=== PATIENT | male | born 1965 | race Two or more races ===

== ENCOUNTER 2016-08-16 17:07 | Emergency (ER) | payer MEDICARE, MEDICAID ==
[~2016-08-16] VITALS: Ht 1 cm; Wt 1.0 kg
[~2016-08-16 17:07] MED LIST: ASPI81CH43 PO; Atorvastatin Calcium PO; CALCIUM CHLOR(10%) 100MG/ML 10ML SYRINGE IV ONE; CARV6.2551 PO; EPINEPHrine HCL 1 MG/10 ML SYRG IV ONE; LISI10TA6 PO; Metronidazole PO; NOR5T PO; Nitroglycerin TD; SEVE800T8 PO; SODIUM BICARBONATE 8.4% INJ 50ML SYRINGE IV ONE; Verapamil Hcl PO
== END 2016-08-16 23:39 | disposition expired ==
LOC: ER 17:09
DX: I46.9 Cardiac arrest, cause unspecified (principal); I12.0 Hypertensive chronic kidney disease with stage 5 chronic kidney disease or end stage renal disease; N18.6 End stage renal disease; Z99.2 Dependence on renal dialysis
CPT/HCPCS: 31500; 36556; 82962; 92950; 99291; J0171